=== PATIENT | female | born 1970 | race Caucasian/White ===

== ENCOUNTER → 2016-07-12 | Outpatient (CLI) | payer OTHER | LOC: CIMAGING 07:21 | PROVIDERS: ATTEND Physician Assistant | DX: Z12.31 Encounter for screening mammogram for malignant neoplasm of breast (principal) | CPT/HCPCS: G0202 ==

== ENCOUNTER → 2016-07-23 | Outpatient (CLI) | payer OTHER | LOC: BRMIMAGING 08:55 | PROVIDERS: ATTEND Physician Assistant | DX: R92.8 Other abnormal and inconclusive findings on diagnostic imaging of breast (principal) | CPT/HCPCS: 76641-PO; G0206 ==

== ENCOUNTER → 2016-08-07 | Day surgery (SDC) | payer OTHER ==
[~2016-08-07] MED LIST: THROMBIN (BOVINE) 5,000 UNIT VIAL TP ONE
== END | disposition home or self-care (01) ==
LOC: FIMAGING 08:31
PROVIDERS: ATTEND Physician Assistant
PROC: BH00ZZZ Plain Radiography of Right Breast (ICD-10-PCS; principal; 2016-08-07)
DX: R92.8 Other abnormal and inconclusive findings on diagnostic imaging of breast (principal); Z53.8 Procedure and treatment not carried out for other reasons